=== PATIENT | female | born 1980 | race Caucasian/White ===

== ENCOUNTER 2016-11-08 10:37 | Day surgery (SDC) | payer BC, MEDICAID ==
[2016-11-08] VITALS (9 sets, daily range): BP systolic 101–118; BP diastolic 65–78; PULSE 52–78; TEMP 97.5–98
[~2016-11-08] VITALS: Ht 170.2 cm; Wt 80.0 kg
[2016-11-08] MEDS ORDERED: SYNTHROID0.137 MG PO (11:51)
[2016-11-08] MEDS ORDERED: MULTI VITAMINS1 TAB PO (11:51)
[2016-11-08] MEDS ORDERED: TYLENOL 325MG325 MG PO (11:52)
[2016-11-08] MEDS ORDERED: MOTRIN 800800 MG/TAB PO (12:17)
[2016-11-08] MEDS ORDERED: PERCOCET 325 MG1 TA2 PO (12:17)
== END 2016-11-08 20:10 | disposition home or self-care (01) ==
LOC: SDCO 10:37
DX: N92.0 Excessive and frequent menstruation with regular cycle (principal); N73.6 Female pelvic peritoneal adhesions (postinfective); E03.9 Hypothyroidism, unspecified
CPT/HCPCS: A4315; J0690; J1100; J1885; J2405; J2704; J2710; J3010; J7120; Q9968

== ENCOUNTER → 2021-08-17 | Outpatient (CLI) | payer BC ==
[~2021-08-17] MED LIST: MOTRIN 800800 MG/TAB PO; MULTI VITAMINS1 TAB PO; PERCOCET 325 MG1 TA2 PO; SYNTHROID0.137 MG PO; TYLENOL 325MG325 MG PO
== END ==
LOC: MC.RAD 10:28
DX: Z12.31 Encounter for screening mammogram for malignant neoplasm of breast (principal)

== ENCOUNTER → 2023-01-10 | Outpatient (CLI) | payer BC | LOC: MC.RAD 10-08 10:15 | DX: Z12.31 Encounter for screening mammogram for malignant neoplasm of breast (principal); N64.89 Other specified disorders of breast ==